=== PATIENT | male | born 1960 | race Caucasian/White ===

== ENCOUNTER → 2022-05-31 | Outpatient (CLI) | payer MEDICARE ==
[~2022-05-31] VITALS: Ht 185.4 cm; Wt 100.7 kg
[~2022-05-31] MED LIST: DULO60CA59 PO; GABA800T10 PO; LISI1TAB46 PO; ROSU20TA32 PO; TADA5TAB13 PO; TMSL.4C PO
== END ==
LOC: PREOP 05:43
PROVIDERS: ATTEND Surgery
DX: Z01.818 Encounter for other preprocedural examination (principal)

== ENCOUNTER 2022-06-12 08:26 | Day surgery (SDC) | payer MEDICARE ==
[2022-06-12] VITALS (7 sets, daily range): BP systolic 87–122; BP diastolic 52–74
[~2022-06-12] VITALS: Ht 185.4 cm; Wt 100.7 kg
[2022-06-12] MEDS ORDERED: LACTATED RINGERS 1,000 ML IV STA (08:35)
[2022-06-12] MEDS ORDERED: MIDAZOLAM 2 MG/2 ML (VERSED) VIAL ONE (09:28)
[2022-06-12] MEDS ORDERED: PROPOFOL INJECTION 50 ML IV ONE ×2 (09:29→09:55)
[2022-06-12] MEDS ORDERED: ATROPINE INJ 0.4 MG/ML SDV ONE (10:09)
--- NOTE | 2022-06-12 10:19 | Endoscopy Discharge Instruct ---
Endo Procedure/Findings Findings 1.: Polyp 2.: Internal Hemorrhoids Discharge Instructions - Activity: You might feel a little sleepy until tomorrow. This is due to the medicine you received to relax you. Until tomorrow, you should: NOT drive a car, operate machinery or power tools. NOT drink any alcoholic beverages. NOT make any important decisions or sign importortant papers. Do not return to work until tomorrow, unless otherwise instructed. Resume previous activities tomorrow. Diet: Start by taking liquids. If you tolerate liquids, advance to solid food. 1.: Colonscopy in 3 years Notify Physician - If you experience excessive bleeding, unusual abdominal pain, fever, or chest pain, contact your doctor immediately. VICENTE LOWE DO Jun 12, 2022 10:19
--- NOTE | 2022-06-12 10:19 | Progress Note-Post Operative ---
Post-Operative Progess Note Surgeon (s)/[place] (s) Surgeon VICENTE LOWE DO [place]: GALINDO Reis Pre-Operative Diagnosis screening colon Post-Operative Diagnosis polyps int hemorrhoids Procedure & Operative Findings Date of Procedure 06/12/22 Procedure Performed/Findings Colonoscopy with snare PROCEDURE NOTE: After informed consent was obtained, the patient was brought to the endoscopy suite, placed in bed in left lateral decubitus position. He was administered IV sedation by the PEDIATRIC CARE COORDINATOR who then monitored his vitals the entire time, heart rate, blood pressure and pulse ox and the scope was inserted, pushed all the way to about 150 cm and pushed into the cecum. Took a picture of appendiceal orifice and found a small polyp; elected to do a snare polypectomy. Then slowly withdrew the scope insufflating to look circumferentially at the [place] starting in the cecum and then up the ascending colon. Found two polyps in the ascending colon, removed with snare polypectomy. Continued up to the hepatic flexure and then down the transverse colon; where I found two more polyps, also removed them with snare. Next to the splenic flexure, into the descending colon down and down into the sigmoid colon. Finally into the rectal vault where I found another small polyp; removed with snare. Retroflexed the scope and took a picture of the internal hemorrhoids. The patient tolerated the procedure. He was recovered in endoscopy suite. Recommended for repeat colonoscopy in 3 years because of the number of polyps found. Anesthesia Type IV sedation by PEDIATRIC CARE COORDINATOR Estimated Blood Loss Estimated blood loss (mL): scant Specimens/Packing Specimens Removed asc colon polyp x 2 transverse polyp x 2 rectal polyp VICENTE LOWE DO Jun 12, 2022 10:19
--- NOTE | 2022-06-12 13:27 | Anesthesia-General Post-Op ---
MAC Patient Condition Mental Status/LOC: Same as Preop Cardiovascular: Satisfactory Nausea/Vomiting: Absent Respiratory: Satisfactory Pain: Controlled Complications: Absent Post Op Complications Complications None Follow Up Care/Instructions Patient Instructions None needed. Anesthesiology Discharge Order Discharge Order Patient is doing well, no complaints, stable vital signs, no apparent adverse anesthesia problems. No complications reported per nursing. TRAE LAO CRNA Jun 12, 2022 13:27
== END 2022-06-12 11:05 | disposition home or self-care (01) ==
LOC: ENDO 08:26
PROVIDERS: ATTEND Surgery
DX: Z12.11 Encounter for screening for malignant neoplasm of colon (principal); D12.2 Benign neoplasm of ascending colon; D12.3 Benign neoplasm of transverse colon; K62.1 Rectal polyp; K64.8 Other hemorrhoids; F17.210 Nicotine dependence, cigarettes, uncomplicated; Z79.82 Long term (current) use of aspirin; Z89.019 Acquired absence of unspecified thumb; Z28.310 Unvaccinated for COVID-19
CPT/HCPCS: 88305

== ENCOUNTER → 2022-11-10 | Outpatient (CLI) | payer MEDICARE ==
--- NOTE | 2022-11-10 11:27 | Diagnostic Imaging Report ---
EXAMINATION: CT chest without contrast (lung screening). TECHNIQUE: Multiple contiguous axial images were obtained through the chest without the use of intravenous contrast according to lung cancer screening protocol. All CT scans use one or more of the following dose optimizing techniques: automated exposure control, MA and/or KvP adjustment based on patient size and exam type or iterative reconstruction. HISTORY: 60 pack year history of smoking. COMPARISON: None available. FINDINGS: Thyroid: The thyroid is normal. Mediastinum: Heart size is normal without significant pericardial effusion. The aorta is normal in caliber. No suspicious lymphadenopathy. Lungs and airways: There are mild background emphysematous changes of the lungs without consolidation, pleural effusion, or pneumothorax. There is a 0.5 x 0.4 cm left upper lobe subpleural pulmonary nodule on (series 2 image 116). There is a 0.6 x 0.5 cm left lower lobe subpleural pulmonary nodule on (series 2 image 192). There is an additional 0.3 x 0.2 cm left lower lobe subpleural pulmonary nodule (series 2 image 200). The airways are normal. Upper abdomen: The subphrenic structures are normal. Musculoskeletal: Degenerative changes of the spine without suspicious osseous lesion or compression fracture. IMPRESSION: 1. Pulmonary nodules measuring up to 0.6 cm average. Recommend six-month low-dose CT follow-up. LUNG-RADS CATEGORY: 3 MODIFIER: S Dictated by: Dictated on workstation # [id number]
== END ==
LOC: RAD 09:49
PROVIDERS: ATTEND Family Medicine
DX: R91.1 Solitary pulmonary nodule (principal); Z87.891 Personal history of nicotine dependence
CPT/HCPCS: 71271